=== PATIENT | female | born 1950 | race Caucasian/White ===

== ENCOUNTER → 2018-02-11 | Outpatient (CLI) | payer OTHER, BC ==
--- NOTE | 2018-02-11 13:02 | DIAGNOSTIC IMAGING REPORT ---
LUMBAR SPINE W/O CONTRAST CLINICAL HISTORY: 67 years-old Female presenting with LOW BACK PAIN, chronic low back pain mainly on the right side intermittently for 3 years, nonradiating pain, no history of injury, prior laminectomy and discectomy in 2014, no history of cancer. TECHNIQUE: Multisequence, multiplanar MR imaging of the lumbar spine was performed without the use of intravenous contrast. IV contrast: None. COMPARISON: None. FINDINGS: Localizer images: Unremarkable. Postsurgical changes of L4 laminectomy. 6 mm of grade 1 anterolisthesis of L4 on L5. Associated significant intervertebral disc height loss at L4-5 with sclerotic endplate changes (Modic type III). Vertebral bodies otherwise maintain normal height, alignment, and bone marrow signal intensity. Mild diffuse intervertebral disc desiccation with height loss also evident at L2-3 and L3-4 to lesser degrees. Additional multilevel degenerative changes further detailed below: L1-2: No significant neural foraminal or spinal canal narrowing. L2-3: Minimal disc bulge without significant spinal canal or neural foraminal narrowing. L3-4: Disc bulge with eccentric greater effacement of the far lateral right neural foramen. Mass effect on the exiting right L3 nerve root evident with overall mild right neural foraminal narrowing. In combination with facet arthropathy and ligamentum flavum thickening, circumferential effacement of the thecal sac is evident with minimal residual CSF signal intensity. L4-5: Anterolisthesis with right greater than left facet arthropathy and laminectomy changes. Moderate bilateral neural foraminal narrowing is evident with mass effect on the exiting right L4 nerve root and abutment of the exiting left L4 nerve root. Mild effacement of the ventral thecal sac without significant result due to adequate posterior decompression. L5-S1: Facet arthropathy results in mild to moderate bilateral neural foraminal narrowing. No significant spinal canal narrowing. 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 Spinal cord remains in good position at the level of L1-2. The cauda equina has a buckled morphology with focal crowding at L3-4 as mentioned above but is otherwise normal in configuration. No paraspinal muscular edema. No epidural collection. Superficial soft tissues in the lumbar region demonstrate postsurgical changes. No focal fluid collection. Remaining visualized soft tissues within normal limits. IMPRESSION: 1. Postsurgical changes of L4 laminectomy with 6 mm of grade 1 anterolisthesis of L4 on L5. 2. Multilevel degenerative changes with moderate to severe spinal canal stenosis at L3-4. The buckled morphology of the cauda equina resulting from this stenosis could suggest impingement in the proper clinical setting. 3. Multilevel neural foraminal narrowing with degenerative change resulting in mass effect on the exiting right L3 and L4 nerve roots. Additional details as above. The report will be called/faxed according to standard departmental protocol. Electronically signed by: Edilson Vargas M.D. 02/11/2018 1:01 PM Dictated Date/Time: 02/11/2018 12:54 PM
== END | disposition home or self-care (01) ==
LOC: C.MRI 11:30
PROVIDERS: ATTEND Family Medicine
DX: M54.5 Low back pain (principal)